=== PATIENT | male | born 1995 | race Two or more races ===

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

== ENCOUNTER 2017-01-28 19:52 | Emergency (ER) | payer OTHER ==
[~2017-01-28] VITALS: Ht 167.6 cm; Wt 72.6 kg
--- NOTE | 2017-01-28 20:34 | NUR ---
PT BIB SELF FROM HOME, PT STATES HE RAN INTO A DOOR LAST NIGHT PT C/O HEADACHE AND DIZZINESS DENIES LOC. PT AOX3 RR EVEN AND UNLABORED. NO SOB NOTED. NAD NOTED. NO NVD AT THIS TIME. PT GOWNED AND PLACED ON MONITOR WAITING FOR MD ACOSTA.
--- NOTE | 2017-01-28 20:48 | NUR ---
PT TO RADIOLOGY FOR HEAD CT.
--- NOTE | 2017-01-28 20:51 | NUR ---
PT RETURNED FROM CT.
[2017-01-28] MEDS ORDERED: ACETAMINOPHEN ES 500 MG TABLET ONE (20:52)
[2017-01-28] MEDS ORDERED: ACETAMINOPHEN ES 500 MG TABLET PO ONE (21:00)
[2017-01-28 21:22] VITALS: BP 132/90
== END 2017-01-28 21:23 | disposition home or self-care (01) ==
LOC: ER 19:59
DX: S06.0X9A Concussion with loss of consciousness of unspecified duration, initial encounter (principal); F17.200 Nicotine dependence, unspecified, uncomplicated; F10.129 Alcohol abuse with intoxication, unspecified; W22.8XXA Striking against or struck by other objects, initial encounter; Y93.89 Activity, other specified; Y92.89 Other specified places as the place of occurrence of the external cause; Y99.9 Unspecified external cause status
CPT/HCPCS: 70450; 99284; A4606; Z7610

== ENCOUNTER 2017-12-03 01:12 | Emergency (ER) | payer MEDICAID, OTHER ==
[~2017-12-03] VITALS: Ht 170.2 cm; Wt 80.7 kg
[2017-12-03 01:25] VITALS: BP 151/94
== END 2017-12-03 02:32 | disposition home or self-care (01) ==
LOC: ER 01:15
DX: S90.811A Abrasion, right foot, initial encounter (principal); F10.10 Alcohol abuse, uncomplicated; F17.200 Nicotine dependence, unspecified, uncomplicated; W25.XXXA Contact with sharp glass, initial encounter; Y93.89 Activity, other specified; Y92.89 Other specified places as the place of occurrence of the external cause; Y99.8 Other external cause status
CPT/HCPCS: 73630; 99284; A4606; Z7610

== ENCOUNTER 2017-12-17 15:42 | Emergency (ER) | payer MEDICAID, OTHER ==
[~2017-12-17] VITALS: Ht 170.2 cm; Wt 80.7 kg
--- NOTE | 2017-12-17 15:55 | NUR ---
Cruz oh in EDM - 12/17/17 at 1750 by JAELYN PT AMBULATORY TO ER BED 15. C/O LOWER BACK PAIN S/P DEADLIFTING WIEGHTS. C/P 9/10 PAIN WORST EARLIER. VSS. AWAITING MD ACOSTA.
--- NOTE | 2017-12-17 16:57 | NUR ---
PT ASSISTED TO ED ED 15 AT THIS TIME. AMBULATORY
--- NOTE | 2017-12-17 17:00 | NUR ---
PT AMBULATORY TO ER BED 15. C/O LOWER BACK PAIN S/P DEADLIFTING WIEGHTS. C/P 9/10 PAIN WORST EARLIER. VSS. AWAITING MD ACOSTA.
[2017-12-17] MEDS ORDERED: ACETAMINOPHEN 325 MG TABLET PO ONE (17:30)
[2017-12-17] MEDS ORDERED: ACETAMINOPHEN ES 500 MG TABLET ONE (17:31)
[2017-12-17 17:50] VITALS: BP 135/99
--- NOTE | 2017-12-17 17:50 | NUR ---
Patient discharged to home in stable condition. Written and verbal after care instructions given. Patient verbalizes understanding of instruction.
== END 2017-12-17 17:51 | disposition home or self-care (01) ==
LOC: ER 15:43
DX: M54.41 Lumbago with sciatica, right side (principal); F10.10 Alcohol abuse, uncomplicated; F17.200 Nicotine dependence, unspecified, uncomplicated; Y90.9 Presence of alcohol in blood, level not specified
CPT/HCPCS: A4606; Z7610

== ENCOUNTER 2018-03-16 11:04 | Emergency (ER) | payer MEDICAID, OTHER ==
[~2018-03-16] VITALS: Ht 170.2 cm; Wt 83.5 kg
[2018-03-16] MEDS ORDERED: ONDANSETRON HCL/PF 4 MG/2 ML VIAL IVP ONE (12:00)
[2018-03-16] MEDS ORDERED: IV NS 0.9% 1,000 ML BAG IV ONE (12:00)
[2018-03-16] MEDS ORDERED: ONDANSETRON HCL/PF 4 MG/2 ML VIAL ONE (12:00)
[2018-03-16 12:01] LABS: BASOPHILS % (AUTO) 0.6 % (0.0-2.0); EOSINOPHILS % (AUTO) 1.3 % (0.0-6.0); HEMATOCRIT 48 % (39-51); HEMOGLOBIN 15.9 g/dL (13.5-17.5); LYMPHOCYTES # (AUTO) 1.9 /CMM (0.8-4.8); MEAN CORPUSCULAR HGB CONC 34 g/dl (31.0-36.0); MEAN CORPUSCULAR VOLUME 89 fL (80-96); MONOCYTES # (AUTO) 0.7 /CMM (0.1-1.30); MONOCYTES % (AUTO) 8.4 % (2.0-12.0); NEUTROPHILS # (AUTO) 5.1 /CMM (1.8-8.9); NEUTROPHILS % (AUTO) 65.7 % (43.0-81.0); PLATELET COUNT (AUTO) 272 /CMM (150-450); RED BLOOD CELL COUNT(AUTO) 5.37 MIL/uL (4.5-6.0); WHITE BLOOD COUNT (AUTO) 7.8 K/uL (4.3-11.0)
--- NOTE | 2018-03-16 12:04 | NUR ---
PT RC'D TO ER C/O ABD PAIN AND BLOODY STOOL THIS MORRNING IV STARTED 18 G LEFT AC LABS AND UA SENT TO LAB . VSS NS IV AND ZOFRAN GIVEN PER MD ORDER
[2018-03-16 12:17] LABS: ALBUMIN 4.2 g/dL (3.4-5.0); BILIRUBIN,DIRECT 0.1 mg/dL (0.0-0.2); BILIRUBIN,TOTAL 0.3 mg/dL (0.2-1.0); CREATININE 1.1 mg/dL (0.6-1.3); POTASSIUM 4.2 mmol/L (3.5-5.1); TOTAL PROTEIN, SERUM 7.8 g/dL (6.4-8.2)
--- NOTE | 2018-03-16 14:09 | NUR ---
PT. VERBALIZED UNDERSTANDING OF AFTERCARE INSTRUCTIONS.IV removed. Catheter intact and site benign. Pressure and 4x4 applied to site. No bleeding noted.Patient discharged to home in stable condition. Written and verbal after care instructions given. Patient verbalizes understanding of instruction.
[2018-03-16 14:21] VITALS: BP 140/85
== END 2018-03-16 14:23 | disposition home or self-care (01) ==
LOC: ER 11:08
DX: K62.5 Hemorrhage of anus and rectum (principal); R10.9 Unspecified abdominal pain; R74.8 Abnormal levels of other serum enzymes; F17.200 Nicotine dependence, unspecified, uncomplicated
CPT/HCPCS: 36415; 80048; 80076; 83690; 85025; 96374; 99284; J2405; J7030; A4606; Z7610

== ENCOUNTER 2018-07-24 15:23 | Emergency (ER) | payer MEDICAID, OTHER ==
[~2018-07-24] VITALS: Ht 167.6 cm; Wt 83.5 kg
--- NOTE | 2018-07-24 16:30 | NUR ---
C/O DIZZINESS SINCE 1 PM, HEADACHE, NAUSEATED. AOX4, AMB, VSS, RR EVEN AND UNLABORED. DENIES SOB, WEAKNESS. SKIN INTACT, NO ACUTE DISTRESS NOTED. PARENT AT BEDSIDE. READY FOR EVAL.
--- NOTE | 2018-07-24 17:05 | NUR ---
URINE AND FLU COLLECTED AND SENT TO STAT LAB
[2018-07-24 17:12] LABS: BASOPHILS # (AUTO) 0.1 /CMM (0.0-0.2); BASOPHILS % (AUTO) 0.5 % (0.0-2.0); EOSINOPHILS % (AUTO) 0.2 % (0.0-6.0); HEMATOCRIT 48 % (39-51); HEMOGLOBIN 16.6 g/dL (13.5-17.5); LYMPHOCYTES # (AUTO) 1.3 /CMM (0.8-4.8); LYMPHOCYTES % (AUTO) 12.9 % (20.0-44.0); MEAN CORPUSCULAR HGB CONC 35 g/dl (31.0-36.0); MEAN CORPUSCULAR VOLUME 90 fL (80-96); MONOCYTES # (AUTO) 0.5 /CMM (0.1-1.30); MONOCYTES % (AUTO) 4.6 % (2.0-12.0); NEUTROPHILS # (AUTO) 8.3 /CMM (1.8-8.9); NEUTROPHILS % (AUTO) 81.8 % (43.0-81.0); PLATELET COUNT (AUTO) 266 /CMM (150-450); RED BLOOD CELL COUNT(AUTO) 5.36 MIL/uL (4.5-6.0); WHITE BLOOD COUNT (AUTO) 10.2 K/uL (4.3-11.0)
[2018-07-24 17:21] LABS: CALCIUM, SERUM 9.4 mg/dL (8.5-10.1); POTASSIUM 3.7 mmol/L (3.5-5.1)
[2018-07-24 17:27] LABS: ALBUMIN 4.5 g/dL (3.4-5.0); BILIRUBIN,DIRECT 0.1 mg/dL (0.0-0.2); BILIRUBIN,TOTAL 0.5 mg/dL (0.2-1.0); TOTAL PROTEIN, SERUM 8.3 g/dL (6.4-8.2)
[2018-07-24] MEDS ORDERED: IV NS 0.9% 1,000 ML BAG IV ONE (17:30)
--- NOTE | 2018-07-24 17:40 | NUR ---
PT TAKEN TO CT VIA YG
[2018-07-24] MEDS ORDERED: IOHEXOL-350 100 ML VIAL IV ONE (17:45)
--- NOTE | 2018-07-24 18:50 | NUR ---
IV removed. Catheter intact and site benign. Pressure and 4x4 applied to site. No bleeding noted. Patient discharged to home in stable condition. Written and verbal after care instructions given. Patient verbalizes understanding of instruction.
[2018-07-24 20:08] VITALS: BP 136/78
== END 2018-07-24 18:50 | disposition home or self-care (01) ==
LOC: ER 15:23
DX: R42 Dizziness and giddiness (principal); R11.0 Nausea; R51 Headache; R53.83 Other fatigue; F17.200 Nicotine dependence, unspecified, uncomplicated
CPT/HCPCS: 36415; 70450-TC; 70496-TC; 70498-TC; 71045-TC; 80048-TC; 80076-TC; 82962-TC; 84443-TC; 85025-TC; 87400; J7030; Q9967

== ENCOUNTER 2018-10-15 12:30 | Emergency (ER) | payer MEDICAID, OTHER ==
[~2018-10-15] VITALS: Ht 167.6 cm; Wt 78.0 kg
[2018-10-15 12:47] VITALS: BP 148/97
== END 2018-10-15 13:26 | disposition home or self-care (01) ==
LOC: ER 12:30
DX: J20.9 Acute bronchitis, unspecified (principal); R42 Dizziness and giddiness; F41.9 Anxiety disorder, unspecified; I10 Essential (primary) hypertension; F17.200 Nicotine dependence, unspecified, uncomplicated

== ENCOUNTER 2018-10-17 08:53 | Emergency (ER) ==
[~2018-10-17] VITALS: Ht 167.6 cm; Wt 77.1 kg
[2018-10-17 08:57] VITALS: BP 131/85
[2018-10-17] MEDS ORDERED: ACETAMINOPHEN ES 500 MG TABLET ONE (09:15)
[2018-10-17] MEDS ORDERED: IBUPROFEN 600 MG TABLET PO ONE ×2 (09:15→09:30)
[2018-10-17] MEDS ORDERED: ACETAMINOPHEN ES 500 MG TABLET PO ONE (09:30)
== END 2018-10-17 09:41 | disposition home or self-care (01) ==
LOC: ER 08:54
DX: J40 Bronchitis, not specified as acute or chronic (principal); I10 Essential (primary) hypertension; F41.9 Anxiety disorder, unspecified; F10.10 Alcohol abuse, uncomplicated; F17.200 Nicotine dependence, unspecified, uncomplicated; Y90.9 Presence of alcohol in blood, level not specified

== ENCOUNTER 2018-11-05 23:28 | Emergency (ER) | payer MEDICAID, OTHER ==
[~2018-11-05] VITALS: Ht 167.6 cm; Wt 76.2 kg
--- NOTE | 2018-11-06 00:20 | NUR ---
PT BROUGHT TO CT VIA W/C, RESP EVEN & UNLABORED, NAD NOTED.
--- NOTE | 2018-11-06 00:34 | NUR ---
PT BACK FR CT W/ RESP EVEN & UNLABORED, NAD NOTED.
--- NOTE | 2018-11-06 01:14 | NUR ---
Dr. Kerr at bedside for update on pt status w/ discharge instructions. pt ambulatory w/ steady gait, resp even & unlabored w/ nad noted. Patient discharged to home in stable condition. Written and verbal after care instructions given. Patient verbalizes understanding of instruction.
[2018-11-06 01:15] VITALS: BP 148/81
== END 2018-11-06 01:16 | disposition home or self-care (01) ==
LOC: ER 23:30
DX: S09.8XXA Other specified injuries of head, initial encounter (principal); R51 Headache; I10 Essential (primary) hypertension; F10.10 Alcohol abuse, uncomplicated; F17.200 Nicotine dependence, unspecified, uncomplicated; Y90.9 Presence of alcohol in blood, level not specified; W22.8XXA Striking against or struck by other objects, initial encounter; Y93.89 Activity, other specified; Y92.89 Other specified places as the place of occurrence of the external cause; Y99.0 Civilian activity done for income or pay
CPT/HCPCS: 70450-TC

== ENCOUNTER 2019-03-23 20:38 | Emergency (ER) | payer SELFPAY ==
[~2019-03-23] VITALS: Ht 167.6 cm; Wt 72.6 kg
--- NOTE | 2019-03-23 21:26 | NUR ---
BIBS FROM HOME. TO ER BED 9. AAOX4. NO RESP DISTRESS NOTED. AMBUALTORY. C/O "I DONT FEEL GOOD". PT REPORTS THAT HE WENT DRINKING LAST NIHGT AT A [employer] [place]Y. HE REPORTS THAT HE IS NAUSEOUS, VOMMITED, COULDNT KEEP HIS FOOD AND LIQUIDS DOWN AND HEADACHE. PT STATES THAT IT DOES NOT FEEL LIKE HANGOVER. UPON ASSESSMENT, NAD NOTED. AWATING MD FOR EVAL.
[2019-03-23] MEDS ORDERED: ONDANSETRON HCL/PF 4 MG/2 ML VIAL ONE (21:38)
[2019-03-23 21:48] LABS: BASOPHILS % (AUTO) 0.3 % (0.0-2.0); EOSINOPHILS % (AUTO) 0.1 % (0.0-6.0); HEMATOCRIT 50 % (39-51); HEMOGLOBIN 17.2 g/dL (13.5-17.5); LYMPHOCYTES # (AUTO) 1.1 /CMM (0.8-4.8); LYMPHOCYTES % (AUTO) 9.5 % (20.0-44.0); MEAN CORPUSCULAR HGB CONC 34 g/dl (31.0-36.0); MEAN CORPUSCULAR VOLUME 89 fL (80-96); MONOCYTES # (AUTO) 0.6 /CMM (0.1-1.30); MONOCYTES % (AUTO) 4.9 % (2.0-12.0); NEUTROPHILS # (AUTO) 9.6 /CMM (1.8-8.9); NEUTROPHILS % (AUTO) 85.2 % (43.0-81.0); PLATELET COUNT (AUTO) 246 /CMM (150-450); RED BLOOD CELL COUNT(AUTO) 5.64 MIL/uL (4.5-6.0); WHITE BLOOD COUNT (AUTO) 11.3 K/uL (4.3-11.0)
[2019-03-23] MEDS ORDERED: ONDANSETRON HCL/PF 4 MG/2 ML VIAL IVP ONE (22:00)
[2019-03-23] MEDS ORDERED: IV NS 0.9% 1,000 ML BAG IV ONE (22:00)
[2019-03-23 22:09] LABS: ALBUMIN 4.7 g/dL (3.4-5.0); BILIRUBIN,DIRECT 0.1 mg/dL (0.0-0.2); BILIRUBIN,TOTAL 0.5 mg/dL (0.2-1.0); CALCIUM, SERUM 9.3 mg/dL (8.5-10.1); CREATININE 0.8 mg/dL (0.6-1.3); POTASSIUM 3.8 mmol/L (3.5-5.1); TOTAL PROTEIN, SERUM 8.5 g/dL (6.4-8.2)
--- NOTE | 2019-03-23 22:54 | NUR ---
Patient discharged to home in stable condition. Written and verbal after care instructions given. Patient verbalizes understanding of instruction.IV removed. Catheter intact and site benign. Pressure and 4x4 applied to site. No bleeding noted. Pt ambulatory with a steady gait
[2019-03-23 22:55] VITALS: BP 138/73
== END 2019-03-23 22:55 | disposition home or self-care (01) ==
LOC: ER 20:40
DX: R11.2 Nausea with vomiting, unspecified (principal); Z72.89 Other problems related to lifestyle; I10 Essential (primary) hypertension; F17.200 Nicotine dependence, unspecified, uncomplicated
CPT/HCPCS: 36415; 80048; 80076; 83690; 85025; 96361; 96374; 99283; J2405; J7030

== ENCOUNTER 2019-10-24 13:09 | Emergency (ER) | payer SELFPAY ==
[~2019-10-24] VITALS: Ht 167.6 cm; Wt 77.1 kg
[2019-10-24 13:23] VITALS: BP 154/101
--- NOTE | 2019-10-24 14:32 | NUR ---
COVID SWAB DONE AND SENT TO LAB
--- NOTE | 2019-10-24 14:35 | NUR ---
Patient discharged to home in stable condition. Written and verbal after care instructions given. Patient verbalizes understanding of instruction. Pt ambulatory with a steady gait
== END 2019-10-24 14:36 | disposition home or self-care (01) ==
LOC: ER 13:12
DX: M79.18 Myalgia, other site (principal); R51 Headache; R68.83 Chills (without fever); I10 Essential (primary) hypertension; Z20.828 Contact with and (suspected) exposure to other viral communicable diseases
CPT/HCPCS: 99283; U0003

== ENCOUNTER 2020-07-15 17:19 | Emergency (ER) | payer OTHER, SELFPAY ==
[~2020-07-15] VITALS: Ht 167.6 cm; Wt 83.9 kg
--- NOTE | 2020-07-15 17:27 | NUR ---
CAME IN FOR PALPITATIONS, L SIDED CHEST PRESSURE, NON-RADIATING, AND ELEVATED BLOOD PRESSURE SINCE YESTERDAY. TO ER BED 9, HOOKED TO JIG AND FIXTURE REPAIRER, BP CUFF AND POX, NOTED W ELEVATED BP, NOTED SINUS TACHYCARDIC, CHANGED TO HOSP GOWN, WARM BLANKET PROVIDED, SENIOR UX DEVELOPER AT BEDSIDE FOR EKG. AWAITING MD ACOSTA
--- NOTE | 2020-07-15 17:43 | NUR ---
LENKA COLON AT BEDSIDE
[2020-07-15] MEDS ORDERED: KETOROLAC TROMETHAMINE 15 MG/ML VIAL ONE (17:52)
[2020-07-15] MEDS ORDERED: LORAZEPAM INJ 2 MG/ML VIAL ONE (17:53)
[2020-07-15 17:58] LABS: BASOPHILS # (AUTO) 0.1 /CMM (0.0-0.2); BASOPHILS % (AUTO) 0.7 % (0.0-2.0); EOSINOPHILS % (AUTO) 0.6 % (0.0-6.0); HEMATOCRIT 51 % (39-51); LYMPHOCYTES # (AUTO) 2.4 /CMM (0.8-4.8); LYMPHOCYTES % (AUTO) 23.2 % (20.0-44.0); MEAN CORPUSCULAR HGB CONC 35 g/dl (31.0-36.0); MEAN CORPUSCULAR VOLUME 89 fL (80-96); MONOCYTES # (AUTO) 0.5 /CMM (0.1-1.30); MONOCYTES % (AUTO) 5.1 % (2.0-12.0); NEUTROPHILS # (AUTO) 7.2 /CMM (1.8-8.9); NEUTROPHILS % (AUTO) 70.4 % (43.0-81.0); PLATELET COUNT (AUTO) 284 /CMM (150-450); RED BLOOD CELL COUNT(AUTO) 5.71 MIL/uL (4.5-6.0); WHITE BLOOD COUNT (AUTO) 10.3 K/uL (4.3-11.0)
[2020-07-15] MEDS: IV NS 0.9% 1,000 ML BAG IV ONE (18:02)
[2020-07-15] MEDS: LORAZEPAM INJ 2 MG/ML VIAL IV ONE (18:02)
[2020-07-15] MEDS: KETOROLAC TROMETHAMINE INJ 30 MG/ML VIAL IV ONE (18:02)
[2020-07-15 18:29] LABS: CALCIUM, SERUM 9.7 mg/dL (8.5-10.1); CARBON DIOXIDE 27 mmol/L (21-32); CHLORIDE 100 mmol/L (98-107); CREATININE 1.1 mg/dL (0.6-1.3); D-DIMER < 0.19 mg/L(FEU (0.17-0.50); GLUCOSE 114 mg/dL (74-106); SODIUM SERUM 138 mmol/L (136-145); UREA NITROGEN, BLOOD 13 mg/dL (7-18)
[2020-07-15 18:50] LABS: ALANINE AMINOTRANSFERASE 73 U/L (12-78); ALBUMIN 4.9 g/dL (3.4-5.0); ALKALINE PHOSPHATASE 115 U/L (46-116); ASPARTATE AMINOTRANSFERASE 31 U/L (15-37); BILIRUBIN,DIRECT 0.1 mg/dL (0.0-0.2); BILIRUBIN,TOTAL 0.7 mg/dL (0.2-1.0); TOTAL PROTEIN, SERUM 8.9 g/dL (6.4-8.2)
[2020-07-15 18:52] LABS: B-TYPE NATRIURETIC PEPTIDE < 5 PG/ML (0-125)
[2020-07-15] MEDS ORDERED: IBUP-1955 PO (19:31)
--- NOTE | 2020-07-15 19:40 | NUR ---
IV removed. Catheter intact and site benign. Pressure and 4x4 applied to site. No bleeding noted.
--- NOTE | 2020-07-15 19:40 | NUR ---
Patient discharged to home in stable condition. Written and verbal after care instructions given. Patient verbalizes understanding of instruction and RX. Pt ambulated out of ED. Denies cp.
[2020-07-15 19:41] VITALS: BP 134/83
== END 2020-07-15 19:43 | disposition home or self-care (01) ==
LOC: ER 17:26
DX: R07.89 Other chest pain (principal); R00.0 Tachycardia, unspecified; I10 Essential (primary) hypertension; F41.9 Anxiety disorder, unspecified; F10.10 Alcohol abuse, uncomplicated; F17.200 Nicotine dependence, unspecified, uncomplicated; Y90.9 Presence of alcohol in blood, level not specified; Z79.899 Other long term (current) drug therapy
CPT/HCPCS: 36415; 71045; 80048; 80076; 83880; 84443; 84484; 85025; 85378; 85652; 85730; 86140; 93005; 96361; 96374; 96375; 99285; J1885; J2060; J7030

== ENCOUNTER 2020-11-04 13:51 | Emergency (ER) | payer OTHER ==
[~2020-11-04] VITALS: Ht 167.6 cm; Wt 86.2 kg
[~2020-11-04 13:51] MED LIST: IBUP-1955 PO
--- NOTE | 2020-11-04 14:37 | NUR ---
Patient discharged to home in stable condition. Written and verbal after care instructions given. Patient verbalizes understanding of instruction. Pt ambulatory with a steady gait
[2020-11-04 15:36] VITALS: BP 143/78
--- NOTE | 2020-11-04 15:36 | NUR ---
Patient discharged to home in stable condition. Written and verbal after care instructions given. Patient verbalizes understanding of instruction. Pt ambulatory with a steady gait
== END 2020-11-04 15:37 | disposition home or self-care (01) ==
LOC: ER 13:57
DX: J02.9 Acute pharyngitis, unspecified (principal); Z20.822 Contact with and (suspected) exposure to COVID-19; I10 Essential (primary) hypertension
CPT/HCPCS: 87070; 87426; 87880; 99283; C9803; 86403-TC

== ENCOUNTER 2020-11-05 23:48 | Emergency (ER) | payer OTHER ==
[~2020-11-05] VITALS: Ht 167.6 cm; Wt 83.9 kg
[2020-11-05 23:50] VITALS: BP 158/106
--- NOTE | 2020-11-05 23:55 | NUR ---
PT BIBSELF C/O FEVER AND FEELING TIRED SINCE SUNDAY. PT AAOX4 BREATHING EVENLY AND UNLABORED. PER PT HE TOOK 500MG TYLENNOL AND THE "FEVER KEEPS COMING BACK". PT ATTACHED TO MONITOR AND POX.
[2020-11-06] MEDS ORDERED: ACETAMINOPHEN ES 500 MG TABLET ONE (00:15)
[2020-11-06] MEDS ORDERED: ACETAMINOPHEN ES 500 MG TABLET PO ONE (00:30)
== END 2020-11-06 00:31 | disposition home or self-care (01) ==
LOC: ER 23:48
DX: B34.9 Viral infection, unspecified (principal); R50.9 Fever, unspecified; I10 Essential (primary) hypertension; F17.200 Nicotine dependence, unspecified, uncomplicated

== ENCOUNTER → 2021-04-20 | Emergency (ER) | payer OTHER ==
[~2021-04-20] VITALS: Ht 167.6 cm; Wt 86.2 kg
[~2021-04-20] MED LIST changes: +CLONIDINE HCL 0.1 MG TABLET ONE; +CLONIDINE HCL 0.1 MG TABLET PO ONE; +ONDANSETRON HCL/PF 4 MG/2 ML VIAL IVP ONE; +ONDANSETRON HCL/PF 4 MG/2 ML VIAL ONE
--- NOTE | 2021-04-20 21:30 | NUR ---
PATIENT BIBS C/O WEAKENESS "FEELING MORE TIRED LATELY" AND DIZZINESS X1 DAY. PATIENT STATES IT WORSENS WHEN STANDING. PATIENT ALERT AND ORIENTED X3. AMBULATORY WITH NON LABORED BREATHING.
--- NOTE | 2021-04-20 21:36 | NUR ---
XRAY AT BEDSIDE
--- NOTE | 2021-04-20 21:43 | NUR ---
BLOOD COLLECTED AND SENT TO LAB
[2021-04-20 22:34] LABS: BASOPHILS % (AUTO) 0.5 % (0.0-2.0); EOSINOPHILS % (AUTO) 0.8 % (0.0-6.0); HEMATOCRIT 49 % (39-51); HEMOGLOBIN 16.6 g/dL (13.5-17.5); LYMPHOCYTES # (AUTO) 2.1 K/uL (0.8-4.8); LYMPHOCYTES % (AUTO) 31.2 % (20.0-44.0); MEAN CORPUSCULAR HGB CONC 34 g/dl (31.0-36.0); MEAN CORPUSCULAR VOLUME 91 fL (80-96); MONOCYTES # (AUTO) 0.5 K/uL (0.1-1.30); MONOCYTES % (AUTO) 7.2 % (2.0-12.0); NEUTROPHILS % (AUTO) 60.3 % (43.0-81.0); PLATELET COUNT (AUTO) 270 K/uL (150-450); RED BLOOD CELL COUNT(AUTO) 5.34 MIL/uL (4.5-6.0); WHITE BLOOD COUNT (AUTO) 6.6 K/uL (4.3-11.0)
[2021-04-20 22:43] LABS: CALCIUM, SERUM 9.3 mg/dL (8.5-10.1); CARBON DIOXIDE 25 mmol/L (21-32); CHLORIDE 104 mmol/L (98-107); CREATININE 1.3 mg/dL (0.6-1.3); GLUCOSE 98 mg/dL (74-106); POTASSIUM 3.5 mmol/L (3.5-5.1); SODIUM SERUM 141 mmol/L (136-145); UREA NITROGEN, BLOOD 14 mg/dL (7-18)
[2021-04-20 22:51] LABS: ALANINE AMINOTRANSFERASE 79 U/L (12-78); ALBUMIN 4.6 g/dL (3.4-5.0); ALKALINE PHOSPHATASE 117 U/L (46-116); ASPARTATE AMINOTRANSFERASE 31 U/L (15-37); BILIRUBIN,DIRECT 0.1 mg/dL (0.0-0.2); BILIRUBIN,TOTAL 0.5 mg/dL (0.2-1.0); TOTAL PROTEIN, SERUM 8.3 g/dL (6.4-8.2)
[2021-04-20 23:16] VITALS: BP 128/84
--- NOTE | 2021-04-20 23:16 | NUR ---
Patient discharged to home in stable condition. Written and verbal after care instructions given. Patient verbalizes understanding of instruction.
== END | disposition home or self-care (01) ==
LOC: ER 21:13
DX: R42 Dizziness and giddiness (principal); I10 Essential (primary) hypertension; F17.200 Nicotine dependence, unspecified, uncomplicated
CPT/HCPCS: 36415; 71045; 80048; 80076; 84484; 85025; 93005; 96374; 99285; J2405

== ENCOUNTER 2021-11-24 21:47 | Emergency (ER) | payer OTHER ==
[~2021-11-24] VITALS: Ht 167.6 cm; Wt 90.7 kg
[~2021-11-24 21:47] MED LIST changes: -CLONIDINE HCL 0.1 MG TABLET ONE; -CLONIDINE HCL 0.1 MG TABLET PO ONE; -ONDANSETRON HCL/PF 4 MG/2 ML VIAL IVP ONE; -ONDANSETRON HCL/PF 4 MG/2 ML VIAL ONE
[2021-11-24] MEDS ORDERED: ACETAMINOPHEN ES 500 MG TABLET ONE (22:42)
[2021-11-24] MEDS ORDERED: DICYCLOMINE HCL INJ 20 MG/2 ML AMPUL IM ONE ×2 (22:42→23:00)
[2021-11-24] MEDS ORDERED: ONDANSETRON HCL/PF 4 MG/2 ML VIAL ONE (22:42)
--- NOTE | 2021-11-24 22:45 | NUR ---
PATIENT BIBSELF C/O ABD PAIN SINCE NOON +N/V S/P ATE A BURRITO. PATIENT IS A/O X4, RR EVEN AND UNLABORED, NO SOB NOTED. PATIENT TAKEN TO ER BED 07. PATIENT CONNECTED TO MONITORS.
[2021-11-24 22:56] LABS: BILIRUBIN,URINE NEGATIVE (NEGATIVE); COLOR,URINE YELLOW (YELLOW); LEUKOCYTE ESTERASE ,URINE NEGATIVE (NEGATIVE); NITRITE, URINE NEGATIVE (NEGATIVE); PROTEIN,URINE TRACE mg/dl (NEGATIVE); UGLUCOSE NEGATIVE (NEGATIVE); UROBILINOGEN,URINE 0.2 EU/dL (0.2)
[2021-11-24 23:00] VITALS: BP 134/80
[2021-11-24] MEDS ORDERED: ONDANSETRON HCL/PF 4 MG/2 ML VIAL IVP ONE (23:00)
[2021-11-24] MEDS ORDERED: IV NS 0.9% 1,000 ML BAG IV ONE (23:00)
[2021-11-24] MEDS ORDERED: ACETAMINOPHEN 325 MG TABLET PO ONE (23:00)
--- NOTE | 2021-11-24 23:05 | NUR ---
COVID SWAB COLLECTED SENT TO LAB
--- NOTE | 2021-11-24 23:05 | NUR ---
BLOOD COLLECTED SENT TO LAB
[2021-11-24 23:23] LABS: BACTERIA,URINE Rare /HPF (None Seen); RBC,URINE 0-2 /HPF (0-2); SQUAMOUS EPITHELIAL CELL,UR Few /HPF (None Seen); WBC,URINE 0-2 /HPF (0-3)
[2021-11-24 23:45] LABS: BASOPHILS % (AUTO) 0.1 % (0.0-2.0); EOSINOPHILS % (AUTO) 0.6 % (0.0-6.0); HEMATOCRIT 45 % (39-51); HEMOGLOBIN 15.9 g/dL (13.5-17.5); LYMPHOCYTES # (AUTO) 0.4 K/uL (0.8-4.8); LYMPHOCYTES % (AUTO) 2.9 % (20.0-44.0); MEAN CORPUSCULAR HGB CONC 35 g/dl (31.0-36.0); MEAN CORPUSCULAR VOLUME 87 fL (80-96); MONOCYTES # (AUTO) 0.7 K/uL (0.1-1.30); MONOCYTES % (AUTO) 5.5 % (2.0-12.0); NEUTROPHILS # (AUTO) 12.4 K/uL (1.8-8.9); NEUTROPHILS % (AUTO) 90.9 % (43.0-81.0); PLATELET COUNT (AUTO) 246 K/uL (150-450); WHITE BLOOD COUNT (AUTO) 13.7 K/uL (4.3-11.0)
[2021-11-25 01:31] LABS: CALCIUM, SERUM 8.8 mg/dL (8.5-10.1); CREATININE 1.1 mg/dL (0.6-1.3); POTASSIUM 4.1 mmol/L (3.5-5.1)
[2021-11-25] MEDS ORDERED: ONDA4TAB5 PO (01:34)
[2021-11-25 01:37] LABS: ALBUMIN 4.3 g/dL (3.4-5.0); BILIRUBIN,DIRECT 0.2 mg/dL (0.0-0.2); BILIRUBIN,TOTAL 0.8 mg/dL (0.2-1.0)
--- NOTE | 2021-11-25 01:53 | NUR ---
Patient discharged to home in stable condition. Rx and Written and verbal after care instructions given. Patient verbalizes understanding of instruction.
== END 2021-11-25 01:54 | disposition home or self-care (01) ==
LOC: ER 21:50
DX: A08.4 Viral intestinal infection, unspecified (principal); R50.9 Fever, unspecified; Z20.822 Contact with and (suspected) exposure to COVID-19; I10 Essential (primary) hypertension
CPT/HCPCS: 36415; 80048; 80076; 81001; 83690; 85025; 87426; 96361; 96372; 96374; 99284; C9803; J0500; J2405; J7030

== ENCOUNTER 2022-12-20 13:40 | Emergency (ER) | payer OTHER ==
[~2022-12-20] VITALS: Ht 167.6 cm; Wt 93.0 kg
[~2022-12-20 13:40] MED LIST changes: +ONDA4TAB5 PO
[2022-12-20 13:50] VITALS: BP 146/87; TEMP 98
--- NOTE | 2022-12-20 14:00 | NUR ---
BIBS FOR [employer]AR[employer] BUILDUP. A/O X 3, ABLE TO MAKE NEEDS KNOWN, TOLERATING WELL ON ROOM AIR. WILL CONTINUE MONITOR.
[2022-12-20] MEDS ORDERED: CARB15DR12 EACH EAR (15:00)
[2022-12-20 15:06] VITALS: O2SAT 97
--- NOTE | 2022-12-20 15:06 | NUR ---
Patient discharged to home in stable condition. Written and verbal after care instructions given. Patient verbalizes understanding of instruction.
== END 2022-12-20 15:44 | disposition home or self-care (01) ==
LOC: ER 13:44
DX: H61.23 Impacted cerumen, bilateral (principal); I10 Essential (primary) hypertension; F17.200 Nicotine dependence, unspecified, uncomplicated; Z79.899 Other long term (current) drug therapy

== ENCOUNTER 2023-02-27 17:20 | Emergency (ER) | payer OTHER ==
[~2023-02-27] VITALS: Ht 167.6 cm; Wt 89.4 kg
[~2023-02-27 17:20] MED LIST changes: +CARB15DR12 EACH EAR
[2023-02-27 17:58] LABS: BASOPHILS # (AUTO) 0.1 K/uL (0.0-0.2); BASOPHILS % (AUTO) 0.6 % (0.0-2.0); EOSINOPHILS # (AUTO) 0.1 K/uL (0.0-0.7); EOSINOPHILS % (AUTO) 0.6 % (0.0-6.0); HEMATOCRIT 46 % (39-51); HEMOGLOBIN 15.3 g/dL (13.5-17.5); LYMPHOCYTES % (AUTO) 23.4 % (20.0-44.0); MEAN CORPUSCULAR HEMOGLOBIN 30 PG (26.0-33.0); MEAN CORPUSCULAR HGB CONC 33 g/dl (31.0-36.0); MEAN CORPUSCULAR VOLUME 89 fL (80-96); MONOCYTES # (AUTO) 0.6 K/uL (0.1-1.30); MONOCYTES % (AUTO) 6.9 % (2.0-12.0); NEUTROPHILS # (AUTO) 5.9 K/uL (1.8-8.9); NEUTROPHILS % (AUTO) 68.5 % (43.0-81.0); PLATELET COUNT (AUTO) 266 K/uL (150-450); RED BLOOD CELL COUNT(AUTO) 5.15 MIL/uL (4.5-6.0); RED CELL DISTRIBUTION WIDTH 13.1 % (11.5-15.0); WHITE BLOOD COUNT (AUTO) 8.5 K/uL (4.3-11.0)
[2023-02-27 18:17] LABS: CALCIUM, SERUM 9.6 mg/dL (8.5-10.1); CREATININE 1.1 mg/dL (0.6-1.3); POTASSIUM 3.6 mmol/L (3.5-5.1)
[2023-02-27 18:22] LABS: ALBUMIN 4.3 g/dL (3.4-5.0); BILIRUBIN,DIRECT 0.1 mg/dL (0.0-0.2); BILIRUBIN,TOTAL 0.4 mg/dL (0.2-1.0)
[2023-02-27 19:13] VITALS: BP 136/77; TEMP 98; O2SAT 99
== END 2023-02-27 19:15 | disposition home or self-care (01) ==
LOC: ER 17:22
DX: B34.9 Viral infection, unspecified (principal); I10 Essential (primary) hypertension; F17.200 Nicotine dependence, unspecified, uncomplicated; Z79.899 Other long term (current) drug therapy; Z20.822 Contact with and (suspected) exposure to COVID-19
CPT/HCPCS: 99283; 87426; 85025; 80048; 83690; 80076; 36415; C9803

== ENCOUNTER 2023-04-28 01:52 | Emergency (ER) | payer OTHER, MEDICAID ==
[~2023-04-28] VITALS: Ht 167.6 cm; Wt 82.1 kg
[2023-04-28] MEDS ORDERED: MECLIZINE HCL 25 MG TABLET ONE (03:26)
[2023-04-28] MEDS ORDERED: IV NS 0.9% 500 ML BAG IV ONE (03:30)
[2023-04-28] MEDS ORDERED: MECLIZINE HCL 12.5 MG TABLET PO ONE (03:30)
[2023-04-28 03:34] LABS: BASOPHILS % (AUTO) 0.4 % (0.0-2.0); EOSINOPHILS # (AUTO) 0.1 K/uL (0.0-0.7); EOSINOPHILS % (AUTO) 0.9 % (0.0-6.0); HEMATOCRIT 45 % (39-51); HEMOGLOBIN 14.9 g/dL (13.5-17.5); LYMPHOCYTES # (AUTO) 1.4 K/uL (0.8-4.8); LYMPHOCYTES % (AUTO) 11.9 % (20.0-44.0); MEAN CORPUSCULAR HEMOGLOBIN 30 PG (26.0-33.0); MEAN CORPUSCULAR HGB CONC 33 g/dl (31.0-36.0); MEAN CORPUSCULAR VOLUME 88 fL (80-96); MONOCYTES # (AUTO) 0.7 K/uL (0.1-1.30); MONOCYTES % (AUTO) 5.8 % (2.0-12.0); NEUTROPHILS # (AUTO) 9.6 K/uL (1.8-8.9); PLATELET COUNT (AUTO) 274 K/uL (150-450); RED BLOOD CELL COUNT(AUTO) 5.04 MIL/uL (4.5-6.0); RED CELL DISTRIBUTION WIDTH 13.3 % (11.5-15.0); WHITE BLOOD COUNT (AUTO) 11.8 K/uL (4.3-11.0)
[2023-04-28 03:39] LABS: CALCIUM, SERUM 9.3 mg/dL (8.5-10.1); CREATININE 0.9 mg/dL (0.6-1.3); POTASSIUM 3.6 mmol/L (3.5-5.1)
[2023-04-28 03:46] LABS: BILIRUBIN,DIRECT 0.1 mg/dL (0.0-0.2); BILIRUBIN,TOTAL 0.3 mg/dL (0.2-1.0); TOTAL PROTEIN, SERUM 7.5 g/dL (6.4-8.2)
[2023-04-28 03:52] LABS: INR 1.03 (0.91-1.10); PARTIAL THROMBOPLASTIN TIME 28.6 SEC (24.3-34.3); PROTHROMBIN TIME 10.9 SECS (9.2-11.1)
[2023-04-28 05:18] LABS: APPEARANCE,URINE CLEAR (CLEAR); BILIRUBIN,URINE NEGATIVE (NEGATIVE); BLOOD, URINE NEGATIVE Ery/uL (NEGATIVE); COLOR,URINE YELLOW (YELLOW); KETONES,URINE NEGATIVE (NEGATIVE); LEUKOCYTE ESTERASE ,URINE NEGATIVE (NEGATIVE); NITRITE, URINE NEGATIVE (NEGATIVE); PROTEIN,URINE NEGATIVE (NEGATIVE); UGLUCOSE NEGATIVE (NEGATIVE); UROBILINOGEN,URINE 0.2 EU/dL (0.2)
[2023-04-28 05:39] VITALS: TEMP 98
[2023-04-28] MEDS ORDERED: CT SWABBABLE VALVE TRANS SET 1 EA INFUS.SET MC ONE (06:38)
[2023-04-28] MEDS ORDERED: IV NS 0.9% 250 ML IV ONE (06:38)
[2023-04-28] MEDS ORDERED: IOHEXOL-350 100 ML VIAL IV ONE (06:38)
[2023-04-28] MEDS ORDERED: MECL-159 PO (08:18)
[2023-04-28 08:51] VITALS: BP 126/80; O2SAT 98
== END 2023-04-28 08:51 | disposition home or self-care (01) ==
LOC: ER 02:06
DX: R42 Dizziness and giddiness (principal); I10 Essential (primary) hypertension; F17.200 Nicotine dependence, unspecified, uncomplicated; Z79.899 Other long term (current) drug therapy
CPT/HCPCS: 99285; 70498; 96360; 71045; 93005; 70496; 85025; 80048; 80076; 81003; 36415; 85730; 70450; J8597; J7050; J7040; Q9967

== ENCOUNTER 2024-04-19 14:30 | Emergency (ER) | payer OTHER ==
[~2024-04-19] VITALS: Ht 167.6 cm; Wt 89.4 kg
[~2024-04-19 14:30] MED LIST changes: +MECL-159 PO
[2024-04-19 15:23] LABS: BASOPHILS % (AUTO) 0.5 % (0.0-2.0); EOSINOPHILS % (AUTO) 0.5 % (0.0-6.0); HEMATOCRIT 45 % (39-51); HEMOGLOBIN 15.6 g/dL (13.5-17.5); LYMPHOCYTES # (AUTO) 1.4 K/uL (0.8-4.8); LYMPHOCYTES % (AUTO) 18.3 % (20.0-44.0); MEAN CORPUSCULAR HEMOGLOBIN 30 PG (26.0-33.0); MEAN CORPUSCULAR HGB CONC 35 g/dl (31.0-36.0); MEAN CORPUSCULAR VOLUME 87 fL (80-96); MONOCYTES # (AUTO) 0.5 K/uL (0.1-1.30); MONOCYTES % (AUTO) 7.1 % (2.0-12.0); NEUTROPHILS # (AUTO) 5.7 K/uL (1.8-8.9); NEUTROPHILS % (AUTO) 73.6 % (43.0-81.0); PLATELET COUNT (AUTO) 240 K/uL (150-450); RED CELL DISTRIBUTION WIDTH 13.1 % (11.5-15.0); WHITE BLOOD COUNT (AUTO) 7.7 K/uL (4.3-11.0)
[2024-04-19 15:35] LABS: CALCIUM, SERUM 8.9 mg/dL (8.5-10.1); CREATININE 0.9 mg/dL (0.6-1.3); POTASSIUM 4.1 mmol/L (3.5-5.1)
[2024-04-19 15:42] LABS: ALBUMIN 4.1 g/dL (3.4-5.0); BILIRUBIN,DIRECT 0.1 mg/dL (0.0-0.2); BILIRUBIN,TOTAL 0.4 mg/dL (0.2-1.0); TOTAL PROTEIN, SERUM 7.8 g/dL (6.4-8.2)
[2024-04-19 16:21] VITALS: BP 135/81; TEMP 97.5; O2SAT 98
== END 2024-04-19 16:21 | disposition home or self-care (01) ==
LOC: ER 14:33
DX: R42 Dizziness and giddiness (principal); R53.1 Weakness; I10 Essential (primary) hypertension; F17.200 Nicotine dependence, unspecified, uncomplicated
CPT/HCPCS: 36415; 80048-TC; 80076-TC; 82962-TC; 85025-TC

== ENCOUNTER 2024-05-12 16:29 | Emergency (ER) | payer OTHER ==
[~2024-05-12] VITALS: Ht 167.6 cm; Wt 88.5 kg
[2024-05-12] MEDS: IV NS 0.9% 1,000 ML BAG IV ONE (18:15)
[2024-05-12] MEDS ORDERED: ONDANSETRON HCL/PF 4 MG/2 ML VIAL ONE (18:17)
[2024-05-12 18:19] LABS: BASOPHILS % (AUTO) 0.2 % (0.0-2.0); EOSINOPHILS # (AUTO) 0.1 K/uL (0.0-0.7); EOSINOPHILS % (AUTO) 0.7 % (0.0-6.0); HEMATOCRIT 50 % (39-51); HEMOGLOBIN 16.9 g/dL (13.5-17.5); LYMPHOCYTES # (AUTO) 0.5 K/uL (0.8-4.8); LYMPHOCYTES % (AUTO) 3.5 % (20.0-44.0); MEAN CORPUSCULAR HEMOGLOBIN 30 PG (26.0-33.0); MEAN CORPUSCULAR HGB CONC 34 g/dl (31.0-36.0); MEAN CORPUSCULAR VOLUME 87 fL (80-96); MONOCYTES # (AUTO) 0.7 K/uL (0.1-1.30); MONOCYTES % (AUTO) 4.9 % (2.0-12.0); NEUTROPHILS # (AUTO) 13.4 K/uL (1.8-8.9); NEUTROPHILS % (AUTO) 90.7 % (43.0-81.0); PLATELET COUNT (AUTO) 229 K/uL (150-450); RED CELL DISTRIBUTION WIDTH 13.2 % (11.5-15.0); WHITE BLOOD COUNT (AUTO) 14.7 K/uL (4.3-11.0)
[2024-05-12] MEDS: ONDANSETRON HCL/PF 4 MG/2 ML VIAL IV ONE (18:27)
[2024-05-12 18:34] LABS: ALBUMIN 5.1 g/dL (3.4-5.0); BILIRUBIN,DIRECT 0.1 mg/dL (0.0-0.2); BILIRUBIN,TOTAL 0.6 mg/dL (0.2-1.0); CALCIUM, SERUM 9.1 mg/dL (8.5-10.1); POTASSIUM 3.7 mmol/L (3.5-5.1); TOTAL PROTEIN, SERUM 8.7 g/dL (6.4-8.2)
[2024-05-12 18:47] LABS: APPEARANCE,URINE CLEAR (CLEAR); BILIRUBIN,URINE NEGATIVE (NEGATIVE); BLOOD, URINE NEGATIVE Ery/uL (NEGATIVE); COLOR,URINE YELLOW (YELLOW); KETONES,URINE NEGATIVE (NEGATIVE); LEUKOCYTE ESTERASE ,URINE NEGATIVE (NEGATIVE); NITRITE, URINE NEGATIVE (NEGATIVE); PH,URINE 7.5 (5.0-8.0); PROTEIN,URINE NEGATIVE (NEGATIVE); UGLUCOSE NEGATIVE (NEGATIVE); UROBILINOGEN,URINE 0.2 EU/dL (0.2)
[2024-05-12] MEDS ORDERED: ACETAMINOPHEN ES 500 MG TABLET ONE (19:13)
[2024-05-12] MEDS: ACETAMINOPHEN ES 500 MG TABLET PO ONE (19:17)
[2024-05-12 19:18] VITALS: BP 136/94; TEMP 98; O2SAT 99
== END 2024-05-12 19:19 | disposition home or self-care (01) ==
LOC: ER 16:45
DX: R10.11 Right upper quadrant pain (principal); I10 Essential (primary) hypertension; E11.9 Type 2 diabetes mellitus without complications; F17.200 Nicotine dependence, unspecified, uncomplicated
CPT/HCPCS: 99285; 96374; 76705; 96361; 85025; 80048; 83690; 80076; 81003; 36415; J2405; J7030 ×2; A4223

== ENCOUNTER 2025-02-16 06:16 | Emergency (ER) | payer OTHER ==
[~2025-02-16] VITALS: Ht 167.6 cm; Wt 90.7 kg
[2025-02-16] MEDS: IV NS 0.9% 500 ML BAG IV ONE (07:08)
[2025-02-16] MEDS ORDERED: MECLIZINE HCL 25 MG TABLET ONE (07:10)
[2025-02-16] MEDS ORDERED: ONDANSETRON HCL/PF 4 MG/2 ML VIAL ONE (07:10)
[2025-02-16 07:13] LABS: PLATELET COUNT (AUTO) 255 K/uL (150-450); RED BLOOD CELL COUNT(AUTO) 5.09 MIL/uL (4.5-6.0); RED CELL DISTRIBUTION WIDTH 13.2 % (11.5-15.0); WHITE BLOOD COUNT (AUTO) 6.4 K/uL (4.3-11.0)
[2025-02-16] MEDS: ONDANSETRON HCL/PF 4 MG/2 ML VIAL IV ONE (07:14)
[2025-02-16] MEDS: MECLIZINE HCL 12.5 MG TABLET PO ONE (07:14)
[2025-02-16 07:22] LABS: CALCIUM, SERUM 8.8 mg/dL (8.5-10.1); CREATININE 0.9 mg/dL (0.6-1.3); SODIUM SERUM 139 mmol/L (136-145); UREA NITROGEN, BLOOD 12 mg/dL (7-18)
[2025-02-16 07:28] LABS: ASPARTATE AMINOTRANSFERASE 21.0 U/L (15-37); TOTAL PROTEIN, SERUM 7.4 g/dL (6.4-8.2)
[2025-02-16] MEDS ORDERED: ONDA4TAB5 PO (08:16)
[2025-02-16] MEDS ORDERED: MECL-159 PO (08:16)
[2025-02-16 08:24] VITALS: BP 128/77; TEMP 99; O2SAT 95
== END 2025-02-16 08:24 | disposition home or self-care (01) ==
LOC: ER 06:16
DX: H83.09 Labyrinthitis, unspecified ear (principal); R42 Dizziness and giddiness; I10 Essential (primary) hypertension; E11.9 Type 2 diabetes mellitus without complications; F17.200 Nicotine dependence, unspecified, uncomplicated
CPT/HCPCS: 99285; 96374; 71045; 93005; 85025; 80048; 80076; 36415; 84443; 84484; 82962; J8597; J2405; J7040